=== PATIENT | male | born 1975 | race Two or more races ===

== ENCOUNTER 2025-02-17 08:58 | Outpatient (CLI) | payer OTHER ==
[~2025-02-17 08:58] MED LIST: KETO10TA2 PO; [UNRECOGNIZED DRUG - OTHER]
== END 2025-02-17 09:07 | disposition home or self-care (01) ==
LOC: SONOGRAMA 08:58
PROVIDERS: ATTEND Internal Medicine Cardiovascular Disease
DX: R10.13 Epigastric pain (principal)

== ENCOUNTER 2025-02-17 10:24 | Outpatient (CLI) | payer OTHER ==
[2025-02-17 11:58] LABS: CREATININE SERUM 0.76 mg/dL (0.70-1.30)
== END 2025-02-17 10:30 | disposition home or self-care (01) ==
LOC: LAB 10:24
PROVIDERS: ATTEND Radiology Diagnostic Radiology
DX: R10.13 Epigastric pain (principal)

== ENCOUNTER 2025-02-24 08:47 | Outpatient (CLI) | payer OTHER | END 2025-02-24 08:49 | disposition home or self-care (01) | LOC: SONOGRAMA 08:47 | PROVIDERS: ATTEND Internal Medicine Cardiovascular Disease | DX: R10.13 Epigastric pain (principal) ==